=== PATIENT | male | born 1965 | race Caucasian/White ===

== ENCOUNTER 2017-04-10 14:02 | Inpatient (IN) | payer MEDICARE, OTHER ==
[~2017-04-10] VITALS: Ht 172.7 cm; Wt 57.2 kg
[2017-04-10] MEDS ORDERED: LORAZEPAM 0.5 MG TABLET PO PRN (16:30)
[2017-04-10] MEDS ORDERED: MAGNESIUM HYDROXIDE 30 ML UDC PO PRN (16:30)
[2017-04-10] MEDS ORDERED: ACETAMINOPHEN 325 MG TABLET PO PRN (16:30)
[2017-04-10] MEDS ORDERED: MAG HYDROX/AL HYDROX/SIMETH 30 ML UDC PO PRN (16:30)
[2017-04-10] MEDS ORDERED: THIA100T70 PO (17:16)
[2017-04-10] MEDS ORDERED: FOLI1TAB16 PO (17:16)
[2017-04-10] MEDS ORDERED: AMLO5TAB2 PO (17:16)
[2017-04-10] MEDS ORDERED: QUIN20TA31 PO (17:16)
[2017-04-10] MEDS ORDERED: ASPI-869 PO (17:16)
[2017-04-10 19:58] VITALS: BP 121/95
[2017-04-10] MEDS: THIAMINE HCL 100 MG TABLET PO SCH (20:20)
[2017-04-10] MEDS: TEMAZEPAM 7.5 MG CAPSULE PO PRN (22:37)
[2017-04-10] MEDS ORDERED: SERTRALINE HCL 25 MG TABLET PO SCH (23:00)
[2017-04-10] MEDS ORDERED: SERTRALINE HCL 25 MG TABLET ONE (23:10)
[2017-04-11 07:49] LABS: ALBUMIN 3.3 g/dL (3.4-5.0); BILIRUBIN,TOTAL 0.7 mg/dL (0.2-1.0); CALCIUM, SERUM 9.1 mg/dL (8.5-10.1); CREATININE 0.8 mg/dL (0.6-1.3); POTASSIUM 4.3 mmol/L (3.5-5.1); TOTAL PROTEIN, SERUM 7.4 g/dL (6.4-8.2)
[2017-04-11 08:00] VITALS: BP 106/79
[2017-04-11 08:01] LABS: CHOLESTEROL 147 mg/dL (<200); HDL CHOLESTEROL 57 mg/dL (40-60); LDL 71 mg/dL (0-99); TRIGLYCERIDES 99 mg/dL (30-150)
[2017-04-11] MEDS ORDERED: QUINAPRIL HCL 10 MG TABLET PO SCH (09:00)
[2017-04-11] MEDS: ASPIRIN EC 325 MG TABLET.DR PO SCH (09:42)
[2017-04-11] MEDS: FOLIC ACID 1 MG TABLET PO SCH (09:42)
[2017-04-11] MEDS: THIAMINE HCL 100 MG TABLET PO SCH (09:42)
[2017-04-11] MEDS: AMLODIPINE BESYLATE 5 MG TABLET PO SCH (09:42)
[2017-04-11] MEDS: LISINOPRIL (10MG) 10 MG TABLET PO SCH (11:00)
[2017-04-11 15:35] VITALS: BP 112/66
[2017-04-11] MEDS: SERTRALINE HCL 25 MG TABLET PO SCH (17:34)
[2017-04-11 20:32] VITALS: BP 95/62
[2017-04-12 08:00] VITALS: BP 109/72
[2017-04-12] MEDS: ASPIRIN EC 325 MG TABLET.DR PO SCH (09:05)
[2017-04-12] MEDS: FOLIC ACID 1 MG TABLET PO SCH (09:07)
[2017-04-12] MEDS: THIAMINE HCL 100 MG TABLET PO SCH (09:07)
[2017-04-12] MEDS: AMLODIPINE BESYLATE 5 MG TABLET PO SCH (09:07)
[2017-04-12] MEDS: LISINOPRIL (10MG) 10 MG TABLET PO SCH (09:09)
[2017-04-12] MEDS: NICOTINE PATCH (21MG) 21 MG PATCH.TD24 TD SCH (10:30)
[2017-04-12 16:31] VITALS: BP 109/62
[2017-04-12] MEDS: SERTRALINE HCL 25 MG TABLET PO SCH (17:00)
[2017-04-12 20:13] VITALS: BP 97/68
[2017-04-13 08:13] VITALS: BP 110/67
[2017-04-13] MEDS: THIAMINE HCL 100 MG TABLET PO SCH (08:24)
[2017-04-13] MEDS: NICOTINE PATCH (21MG) 21 MG PATCH.TD24 TD SCH (08:24)
[2017-04-13] MEDS: AMLODIPINE BESYLATE 5 MG TABLET PO SCH (08:24)
[2017-04-13] MEDS: FOLIC ACID 1 MG TABLET PO SCH (08:24)
[2017-04-13] MEDS: LISINOPRIL (10MG) 10 MG TABLET PO SCH (08:24)
[2017-04-13] MEDS: ASPIRIN EC 325 MG TABLET.DR PO SCH (08:24)
[2017-04-13 15:39] VITALS: BP 109/71
[2017-04-13] MEDS: SERTRALINE HCL 25 MG TABLET PO SCH (16:37)
[2017-04-13 20:00] VITALS: BP 102/66
[2017-04-14 07:58] VITALS: BP 125/80
[2017-04-14] MEDS: THIAMINE HCL 100 MG TABLET PO SCH (08:38)
[2017-04-14] MEDS: AMLODIPINE BESYLATE 5 MG TABLET PO SCH (08:38)
[2017-04-14] MEDS: ASPIRIN EC 325 MG TABLET.DR PO SCH (08:38)
[2017-04-14] MEDS: FOLIC ACID 1 MG TABLET PO SCH (08:38)
[2017-04-14] MEDS: LISINOPRIL (10MG) 10 MG TABLET PO SCH (08:39)
[2017-04-14] MEDS: NICOTINE PATCH (21MG) 21 MG PATCH.TD24 TD SCH (08:40)
[2017-04-14 16:00] VITALS: BP 96/63
[2017-04-14] MEDS: SERTRALINE HCL 25 MG TABLET PO SCH (16:19)
[2017-04-14 20:05] VITALS: BP 98/58
[2017-04-14] MEDS: TEMAZEPAM 7.5 MG CAPSULE PO PRN (21:25)
[2017-04-14 23:00] VITALS: BP 108/68
[2017-04-15 08:00] VITALS: BP 119/62
[2017-04-15] MEDS: AMLODIPINE BESYLATE 5 MG TABLET PO SCH (08:27)
[2017-04-15] MEDS: ASPIRIN EC 325 MG TABLET.DR PO SCH (08:27)
[2017-04-15] MEDS: LISINOPRIL (10MG) 10 MG TABLET PO SCH (08:27)
[2017-04-15] MEDS: FOLIC ACID 1 MG TABLET PO SCH (08:27)
[2017-04-15] MEDS: THIAMINE HCL 100 MG TABLET PO SCH (08:27)
[2017-04-15] MEDS: NICOTINE PATCH (21MG) 21 MG PATCH.TD24 TD SCH (08:29)
[2017-04-15] MEDS ORDERED: LISI10TA59 PO (14:19)
[2017-04-15 16:00] VITALS: BP 94/52
[2017-04-15] MEDS ORDERED: SERTRALINE HCL 25 MG TABLET PO SCH (17:00)
[2017-04-15 20:00] VITALS: BP 98/67
[2017-04-15] MEDS: TEMAZEPAM 7.5 MG CAPSULE PO PRN (21:35)
[2017-04-16 08:25] VITALS: BP 122/64
[2017-04-16 09:05] VITALS: BP 122/64
[2017-04-16] MEDS: NICOTINE PATCH (21MG) 21 MG PATCH.TD24 TD SCH (09:05)
[2017-04-16] MEDS: AMLODIPINE BESYLATE 5 MG TABLET PO SCH (09:05)
[2017-04-16] MEDS: FOLIC ACID 1 MG TABLET PO SCH (09:05)
[2017-04-16] MEDS: LISINOPRIL (10MG) 10 MG TABLET PO SCH (09:05)
[2017-04-16] MEDS: ASPIRIN EC 325 MG TABLET.DR PO SCH (09:05)
[2017-04-16] MEDS: THIAMINE HCL 100 MG TABLET PO SCH (09:05)
== END 2017-04-16 11:35 | disposition home or self-care (01) | DRG 885 ==
LOC: GPS 14:02
PROVIDERS: ADMIT Psychiatry & Neurology Psychiatry; ATTEND Psychiatry & Neurology Psychiatry
DX: F33.2 Major depressive disorder, recurrent severe without psychotic features (principal); B19.20 Unspecified viral hepatitis C without hepatic coma; F29 Unspecified psychosis not due to a substance or known physiological condition; F39 Unspecified mood [affective] disorder; F17.200 Nicotine dependence, unspecified, uncomplicated; I10 Essential (primary) hypertension; Z86.73 Personal history of transient ischemic attack (TIA), and cerebral infarction without residual deficits; F41.9 Anxiety disorder, unspecified; J44.9 Chronic obstructive pulmonary disease, unspecified; F10.10 Alcohol abuse, uncomplicated; Y90.9 Presence of alcohol in blood, level not specified; Z79.82 Long term (current) use of aspirin; Z79.899 Other long term (current) drug therapy; Z73.6 Limitation of activities due to disability
CPT/HCPCS: 36415; 80053-TC; 80061-TC; 87081-TC